=== PATIENT | female | born 1970 | race Two or more races ===

== ENCOUNTER 2024-08-14 10:05 | Day surgery (SDC) | payer OTHER ==
[2024-08-08 10:45] VITALS: BP 160/90
[2024-08-08 11:44] LABS: BASO % 0.6 % (0.1-1.2); EOS # 0.12 (0.04-0.54); EOS % 1.4 % (0.7-7.0); HEMATOCRIT 42.3 % (34.1-44.9); HEMOGLOBIN 13.9 g/dL (11.2-15.7); LYMPH # 2.48 (1.18-3.74); LYMPH % 29.7 % (19.3-53.1); MEAN CORPUSCULAR HEMOGLOBIN 29.6 pg (25.6-32.2); MONO # 0.52 (0.24-0.82); MONO % 6.2 % (4.7-12.5); NEUT # 5.17 (1.56-6.13); NEUT % 61.9 % (34.0-71.1); PLATELET COUNT 298 K/uL (163-369); RED CELL DISTRIBUTION WIDTH 12.5 % (11.6-14.4)
[2024-08-08 11:49] LABS: URINE APPEARANCE Clear; URINE BILIRRUBIN Negative (NEGATIVE); URINE BLOOD Negative; URINE COLOR Yellow; URINE GLUCOSE Negative (NEGATIVE); URINE KETONE Negative (NEGATIVE); URINE LEUKOCYTE Negative; URINE NITRATE Negative; URINE PROTEIN Negative (NEGATIVE); URINE UROBILINOGEN 0.2 E.U./dl
[2024-08-08 11:56] LABS: URINE BACTERIA 39.1 uL (0.0-1933); URINE EPITHELIAL CELLS 12.9 uL (0.0-38.8); URINE RBC 2.3 uL (0.0-20.8); URINE WBC 3.3 uL (0.0-23.2)
[2024-08-08 12:11] LABS: INR 1.01; PARTIAL THROMBOPLASTIN TIME 25.9 SECONDS (22.0-34.0)
[2024-08-08 12:12] LABS: ALBUMIN 4.1 gm/dL (3.4-5.0); BILIRUBIN TOTAL 0.58 mg/dL (0.3-1.2); CALCIUM 9.4 mg/dL (8.5-10.1); CREATININE SERUM 0.78 mg/dL (0.55-1.02); GFR 77.26; GLOBULINA 3.7 G/DL (2.4-3.5); POTASSIUM 4.36 mEq/L (3.5-5.1); TOTAL PROTEIN 7.8 gm/dL (6.4-8.2)
[~2024-08-14] VITALS: Ht 160 cm; Wt 70.3 kg
[~2024-08-14 10:05] MED LIST: COZAAR100 MG PO; SYNTHROID75 MCG PO
[2024-08-14] MEDS ORDERED: FAMOTIDINE/PF 20 MG/2 ML VIAL IV ONE (12:45)
[2024-08-14] MEDS ORDERED: ONDANSETRON HCL 2 MG/ML VIAL IV ONE (12:45)
[2024-08-14] MEDS ORDERED: MORPHINE SULFATE 4 MG/ML VIAL IV PRN (12:45)
[2024-08-14] MEDS ORDERED: hydrALAZINE HCL 20 MG VIAL ONE (17:33)
[2024-08-14] MEDS ORDERED: hydrOXYzine PAMOATE 50 MG CAPSULE PO ONE (19:15)
[2024-08-14] MEDS ORDERED: ENALAPRILAT DIHYDRATE 1.25 MG/ML VIAL IV ONE (19:15)
== END 2024-08-14 22:10 | disposition home or self-care (01) ==
LOC: CIR.AMB 10:05
PROVIDERS: ATTEND General Practice
DX: N85.00 Endometrial hyperplasia, unspecified (principal); N95.0 Postmenopausal bleeding; Z88.6 Allergy status to analgesic agent